=== PATIENT | female | born 1980 | race African-American/Black ===

== ENCOUNTER 2021-05-25 10:44 | Emergency (ER) | payer MEDICAID ==
[~2021-05-25] VITALS: Ht 167.6 cm; Wt 61.0 kg
[2021-05-25 11:17] LABS: BASOPHILS % 0.3 % (0.0-2.0); EOSINOPHILS % 0.2 % (0.0-5.0); HEMATOCRIT. 39.2 % (36.0-48.0); HEMOGLOBIN. 13.7 g/dL (12.0-16.0); LYMPHOCYTES % 11.1 % (20.0-50.0); MEAN CORPUSCULAR HEMOGLOBIN 35.5 pg (28.0-32.0); MEAN CORPUSCULAR VOLUME 101.6 fL (81.0-99.0); MONOCYTES % 7.7 % (2.0-8.0); NEUTROPHILS % 80.7 % (40.0-76.0); PLATELET 198 x1000/uL (130-400); RED BLOOD CELL COUNT 3.86 mill/uL (4.2-5.4); RED CELL DISTRIBUTION WIDTH 18.1 % (11.6-14.6)
[2021-05-25 11:24] LABS: CHLORIDE 104 mEq/L (98-107)
[2021-05-25 11:32] LABS: HCG SCREEN NEGATIVE
[2021-05-25 17:19] VITALS: BP 144/96
== END 2021-05-25 17:24 | disposition home or self-care (01) ==
LOC: ER 11:01
DX: R06.02 Shortness of breath (principal); R07.2 Precordial pain; M54.89 Other dorsalgia; R42 Dizziness and giddiness; I69.992 Facial weakness following unspecified cerebrovascular disease; Z86.711 Personal history of pulmonary embolism; Z91.14 Patient's other noncompliance with medication regimen
CPT/HCPCS: 36415; 71045; 71275; 80053; 83880; 84484; 84703; 85025; 85379; 93005; 99285

== ENCOUNTER 2021-06-27 09:50 | Emergency (ER) | payer MEDICAID ==
[~2021-06-27] VITALS: Ht 162.6 cm; Wt 46.0 kg
[2021-06-27] MEDS ORDERED: KETOROLAC 30MG/ML VIAL IV STA (10:28)
[2021-06-27] MEDS ORDERED: SODIUM CHLORIDE 0.9% 1,000 ML IV ONE (10:30)
[2021-06-27 10:56] LABS: BASOPHILS % 0.3 % (0.0-2.0); EOSINOPHILS % 0.1 % (0.0-5.0); HEMATOCRIT. 34.7 % (36.0-48.0); HEMOGLOBIN. 11.8 g/dL (12.0-16.0); LYMPHOCYTES % 10.8 % (20.0-50.0); MEAN CORPUSCULAR HEMOGLOBIN 36.6 pg (28.0-32.0); MEAN CORPUSCULAR VOLUME 107.4 fL (81.0-99.0); MEAN PLATELET VOLUME 7.9 fl (7.4-10.4); NEUTROPHILS % 80.8 % (40.0-76.0); PLATELET 279 x1000/uL (130-400); RED BLOOD CELL COUNT 3.23 mill/uL (4.2-5.4); RED CELL DISTRIBUTION WIDTH 16.8 % (11.6-14.6)
[2021-06-27 11:01] LABS: CHLORIDE 105 mEq/L (98-107)
[2021-06-27 12:08] LABS: HCG SCREEN NEGATIVE
[2021-06-27 13:05] LABS: CLARITY URINE CLEAR (CLEAR); COLOR URINE YELLOW (YELLOW); KETONES URINE 3+ (NEGATIVE); LEUKOCYTE ESTERASE URINE TRACE (NEGATIVE); NITRITE URINE POSITIVE (NEGATIVE); OCCULT BLOOD URINE NEGATIVE (NEGATIVE); PH URINE 6.5 (4.5-8.0); PROTEIN URINE NEGATIVE (NEGATIVE); SPECIFIC GRAVITY URINE 1.014 (1.005-1.030)
[2021-06-27] MEDS ORDERED: CEPH500C2 MT (13:35)
[2021-06-27] MEDS ORDERED: CEFTRIAXONE 1 G PREMIX 50 ML IV ONE (13:45)
[2021-06-27] MEDS ORDERED: IOHEXOL-350 100 ML BOTTLE ONE (14:50)
[2021-06-27 15:15] VITALS: BP 132/81
== END 2021-06-27 15:17 | disposition home or self-care (01) ==
LOC: ER 09:50
DX: N30.90 Cystitis, unspecified without hematuria (principal); R50.9 Fever, unspecified; R07.89 Other chest pain; Z86.73 Personal history of transient ischemic attack (TIA), and cerebral infarction without residual deficits
CPT/HCPCS: 36415; 71045; 71275; 80053; 81003; 83880; 84484; 84703; 85025; 85379; 87040; 93005; 96361; 96365; 96375; 99285; J0696; J1885; J7030; Q9967

== ENCOUNTER 2021-07-23 04:53 | Inpatient (IN) | payer MEDICAID, OTHER ==
[~2021-07-23] VITALS: Ht 167.6 cm; Wt 48.1 kg
[~2021-07-23 04:53] MED LIST: CEPH500C2 MT
[2021-07-23] MEDS ORDERED: ONDANSETRON HCL 4MG/2ML INJ IV STA (05:12)
[2021-07-23] MEDS ORDERED: SODIUM CHLORIDE 0.9% 1,000 ML IV ONE (05:15)
[2021-07-23 05:43] LABS: HEMATOCRIT. 41.8 % (36.0-48.0); HEMOGLOBIN. 13.6 g/dL (12.0-16.0); MEAN CORPUSCULAR HEMOGLOBIN 36.5 pg (28.0-32.0); MEAN CORPUSCULAR VOLUME 112.2 fL (81.0-99.0); MEAN PLATELET VOLUME 7.9 fl (7.4-10.4); PLATELET 331 x1000/uL (130-400); RED BLOOD CELL COUNT 3.72 mill/uL (4.2-5.4); RED CELL DISTRIBUTION WIDTH 19.1 % (11.6-14.6)
[2021-07-23 05:49] LABS: CHLORIDE 99 mEq/L (98-107)
[2021-07-23 07:06] LABS: PLATELET ESTIMATE NORMAL
[2021-07-23 07:19] LABS: HCG SCREEN NEGATIVE
[2021-07-23 08:03] LABS: CLARITY URINE CLOUDY (CLEAR); COLOR URINE DARK YELLOW (YELLOW); KETONES URINE 4+ (NEGATIVE); LEUKOCYTE ESTERASE URINE NEGATIVE (NEGATIVE); NITRITE URINE NEGATIVE (NEGATIVE); OCCULT BLOOD URINE 3+ (NEGATIVE); PH URINE 5.5 (4.5-8.0); PROTEIN URINE 2+ (NEGATIVE); SPECIFIC GRAVITY URINE 1.017 (1.005-1.030)
[2021-07-23] MEDS ORDERED: IOHEXOL-300 100 ML BOTTLE ONE (08:04)
[2021-07-23] MEDS ORDERED: PANTOPRAZOLE SODIUM 40 MG/VIAL IV SCH (09:30)
[2021-07-23] MEDS ORDERED: METOCLOPRAMIDE HCL 10MG/2ML VIAL IV ONE (09:30)
[2021-07-23] MEDS ORDERED: METRONIDAZOLE 500MG TABLET PO NR (10:00)
[2021-07-23] MEDS ORDERED: CEFTRIAXONE 1 G PREMIX 50 ML IV NR ×2 (10:00→11:15)
[2021-07-23] MEDS ORDERED: METOCLOPRAMIDE HCL 10MG/2ML VIAL IV NR (11:15)
[2021-07-23] MEDS ORDERED: MORPHINE SULFATE 2 MG/ML CPJ (NOT FOR IM USE) IV PRN (18:15)
[2021-07-23 18:23] VITALS: BP 129/92
[2021-07-23] MEDS ORDERED: NALOXONE HCL 0.4MG/ML VIAL IV PRN (18:30)
[2021-07-23] MEDS: ONDANSETRON HCL 4MG/2ML INJ IV PRN (18:38)
[2021-07-23 20:00] VITALS: BP 121/89
[2021-07-23] MEDS ORDERED: MAGN400C PO (20:08)
[2021-07-23] MEDS ORDERED: RIVA10TA MT (20:08)
[2021-07-23] MEDS ORDERED: MEDR2.5T7 MT (20:08)
[2021-07-23] MEDS ORDERED: LISI2.5T47 MT (20:08)
[2021-07-23] MEDS ORDERED: ASPI-986 MT (20:08)
[2021-07-23] MEDS: LEVOFLOXACIN 500MG PREMIX 100 ML IV SCH (20:35)
[2021-07-23] MEDS: DEXT 5%/0.9% NACL KCL 20MEQ/L 1,000 ML IV SCH (20:35)
[2021-07-24] VITALS: BP 121/86
[2021-07-24] MEDS: ONDANSETRON HCL 4MG/2ML INJ IV PRN ×2 (00:48→06:46)
[2021-07-24 04:00] VITALS: BP 115/79
[2021-07-24] MEDS: DEXT 5%/0.9% NACL KCL 20MEQ/L 1,000 ML IV SCH ×2 (06:11→13:14)
[2021-07-24 07:17] LABS: BASOPHILS % 0.1 % (0.0-2.0); EOSINOPHILS % 0.1 % (0.0-5.0); HEMATOCRIT. 32.8 % (36.0-48.0); LYMPHOCYTES % 8.3 % (20.0-50.0); MEAN CORPUSCULAR HEMOGLOBIN 36.1 pg (28.0-32.0); MEAN CORPUSCULAR VOLUME 107.9 fL (81.0-99.0); MEAN PLATELET VOLUME 7.7 fl (7.4-10.4); MONOCYTES % 11.6 % (2.0-8.0); NEUTROPHILS % 79.9 % (40.0-76.0); PLATELET 195 x1000/uL (130-400); RED BLOOD CELL COUNT 3.04 mill/uL (4.2-5.4); RED CELL DISTRIBUTION WIDTH 18.2 % (11.6-14.6)
[2021-07-24 08:00] VITALS: BP 113/79
[2021-07-24 08:22] LABS: CHLORIDE 111 mEq/L (98-107)
[2021-07-24 12:00] VITALS: BP 120/81
[2021-07-24] MEDS: METRONIDAZOLE 500MG TABLET PO SCH ×2 (13:13→21:27)
[2021-07-24] MEDS: METOCLOPRAMIDE HCL 10MG/2ML VIAL IV SCH ×2 (13:14→18:10)
[2021-07-24 13:17] LABS: INR 1.2; PROTHROMBIN TIME 12.6 sec (9.6-11.0)
[2021-07-24 15:51] LABS: HEPATITIS B SURFACE ANTIGEN REACTIVE PEND CONFIR
[2021-07-24 16:00] VITALS: BP 139/92
[2021-07-24] MEDS: PANTOPRAZOLE SODIUM 40 MG/VIAL IV SCH (18:10)
[2021-07-24] MEDS: TRAMADOL 50MG TABLET PO PRN (18:10)
[2021-07-24 20:00] VITALS: BP 126/90
[2021-07-24] MEDS: LEVOFLOXACIN 500MG PREMIX 100 ML IV SCH (21:27)
[2021-07-25] VITALS: BP 124/88
[2021-07-25] MEDS: METOCLOPRAMIDE HCL 10MG/2ML VIAL IV SCH ×4 (00:45→18:22)
[2021-07-25] MEDS: TRAMADOL 50MG TABLET PO PRN ×2 (00:45→09:57)
[2021-07-25 04:00] VITALS: BP 128/82
[2021-07-25] MEDS: DEXT 5%/0.9% NACL KCL 20MEQ/L 1,000 ML IV SCH ×3 (05:58→20:00)
[2021-07-25 06:36] LABS: CHLORIDE 112 mEq/L (98-107)
[2021-07-25 06:44] LABS: BASOPHILS % 0.3 % (0.0-2.0); EOSINOPHILS % 0.3 % (0.0-5.0); HEMATOCRIT. 27.4 % (36.0-48.0); HEMOGLOBIN. 9.5 g/dL (12.0-16.0); LYMPHOCYTES % 16.8 % (20.0-50.0); MEAN CORPUSCULAR HEMOGLOBIN 36.9 pg (28.0-32.0); MEAN CORPUSCULAR VOLUME 106.6 fL (81.0-99.0); MEAN PLATELET VOLUME 7.7 fl (7.4-10.4); MONOCYTES % 11.6 % (2.0-8.0); PLATELET 125 x1000/uL (130-400); RED BLOOD CELL COUNT 2.57 mill/uL (4.2-5.4)
[2021-07-25 08:00] VITALS: BP 147/101
[2021-07-25] MEDS: METRONIDAZOLE 500MG TABLET PO SCH ×2 (09:56→21:39)
[2021-07-25] MEDS: PANTOPRAZOLE SODIUM 40 MG/VIAL IV SCH ×2 (09:57→18:22)
[2021-07-25] MEDS ORDERED: POTASSIUM CHLORIDE 20MEQ/PACKET PO NR ×3 (10:00→17:00)
[2021-07-25] MEDS ORDERED: OMEP40CA20 MT (11:00)
[2021-07-25 12:00] VITALS: BP 145/100
[2021-07-25] MEDS: KCL 20MEQ/100ML X 2 FOR TOTAL KCL 40MEQ/200ML IV SCH ×2 (12:31→14:00)
[2021-07-25] MEDS ORDERED: DIATR MEGLU/DIATRIZOATE SOLN 30ML PO SCH (14:00)
[2021-07-25] MEDS ORDERED: LORAZEPAM 2MG/ML CPJ IV PRN (14:00)
[2021-07-25 16:00] VITALS: BP 131/99
[2021-07-25] MEDS ORDERED: POTASSIUM CHLORIDE INJ 40 MEQ in DEXT 5% WATER 250 ML IV ONE (17:00)
[2021-07-25] MEDS ORDERED: GADOTERATE MEGLUMINE 5 MMOL/10 ML VIAL IV ONE (17:02)
[2021-07-25 20:00] VITALS: BP 139/98
[2021-07-25] MEDS: LEVOFLOXACIN 500MG PREMIX 100 ML IV SCH (21:39)
[2021-07-26] VITALS: BP 145/102
[2021-07-26] MEDS: METOCLOPRAMIDE HCL 10MG/2ML VIAL IV SCH ×3 (00:56→12:27)
[2021-07-26] MEDS: DEXT 5%/0.9% NACL KCL 20MEQ/L 1,000 ML IV SCH ×2 (04:30→12:28)
[2021-07-26 06:54] LABS: BASOPHILS % 0.2 % (0.0-2.0); EOSINOPHILS % 0.3 % (0.0-5.0); HEMATOCRIT. 29.5 % (36.0-48.0); HEMOGLOBIN. 10.2 g/dL (12.0-16.0); LYMPHOCYTES % 15.7 % (20.0-50.0); MEAN CORPUSCULAR HEMOGLOBIN 36.9 pg (28.0-32.0); MEAN PLATELET VOLUME 8.1 fl (7.4-10.4); MONOCYTES % 10.5 % (2.0-8.0); NEUTROPHILS % 73.3 % (40.0-76.0); PLATELET 137 x1000/uL (130-400); RED BLOOD CELL COUNT 2.76 mill/uL (4.2-5.4); RED CELL DISTRIBUTION WIDTH 17.5 % (11.6-14.6)
[2021-07-26 07:03] LABS: CHLORIDE 109 mEq/L (98-107)
[2021-07-26 08:00] VITALS: BP 121/82
[2021-07-26] MEDS: METRONIDAZOLE 500MG TABLET PO SCH (08:14)
[2021-07-26] MEDS: PANTOPRAZOLE SODIUM 40 MG/VIAL IV SCH (08:14)
[2021-07-26 12:00] VITALS: BP 134/96
[2021-07-26] MEDS ORDERED: POTASSIUM CHLORIDE 20MEQ TABLET SR PO NR (12:30)
[2021-07-28 09:10] LABS: HBSAG SCREEN Confirm. indicated (Negative)
[2021-07-28 13:06] LABS: HBSAG CONFIRMATION Positive (.)
== END 2021-07-26 15:57 | disposition home or self-care (01) | DRG 720 ==
LOC: ER 04:53 → 6EST 09:51 → EDBEDREQTM 09:53 → EDBEDREQ 09:53 → ENRESERV 14:55
PROVIDERS: ADMIT Internal Medicine; ATTEND Internal Medicine
DX: A41.9 Sepsis, unspecified organism (principal); K85.20 Alcohol induced acute pancreatitis without necrosis or infection; I69.354 Hemiplegia and hemiparesis following cerebral infarction affecting left non-dominant side; K70.10 Alcoholic hepatitis without ascites; R16.0 Hepatomegaly, not elsewhere classified; A59.9 Trichomoniasis, unspecified; D53.9 Nutritional anemia, unspecified; B19.10 Unspecified viral hepatitis B without hepatic coma; D50.9 Iron deficiency anemia, unspecified; F10.20 Alcohol dependence, uncomplicated; K20.90 Esophagitis, unspecified without bleeding; K29.70 Gastritis, unspecified, without bleeding; K52.9 Noninfective gastroenteritis and colitis, unspecified; K76.9 Liver disease, unspecified; K31.89 Other diseases of stomach and duodenum; R74.01 Elevation of levels of liver transaminase levels; F17.210 Nicotine dependence, cigarettes, uncomplicated; Z79.82 Long term (current) use of aspirin; Z86.711 Personal history of pulmonary embolism; Z79.01 Long term (current) use of anticoagulants; Z79.899 Other long term (current) drug therapy; Z71.6 Tobacco abuse counseling
CPT/HCPCS: 36415; 74177; 74183; 76700; 80048; 80053; 80076; 81003; 82140; 83036; 84703; 85025; 86705; 86709; 86803; 87340; 87517; 99285; A9577; C9113; J0696; J1956; J2060; J2270; J2405; J2765; J3480; J7030; Q9963; Q9967

== ENCOUNTER 2021-08-14 00:30 | Inpatient (IN) | payer MEDICAID, OTHER ==
[~2021-08-14] VITALS: Ht 167.6 cm; Wt 50.0 kg
[~2021-08-14 00:30] MED LIST changes: +ASPI-986 MT; -CEPH500C2 MT; +LISI2.5T47 MT; +MAGN400C PO; +MEDR2.5T7 MT; +OMEP40CA20 MT; +RIVA10TA MT
[2021-08-14] MEDS ORDERED: IBUPROFEN 600MG TABLET PO STA (00:46)
[2021-08-14] MEDS ORDERED: ONDANSETRON 4MG ODT PO ONE (02:00)
[2021-08-14 02:11] LABS: CLARITY URINE CLEAR (CLEAR); COLOR URINE YELLOW (YELLOW); KETONES URINE 4+ (NEGATIVE); LEUKOCYTE ESTERASE URINE NEGATIVE (NEGATIVE); NITRITE URINE NEGATIVE (NEGATIVE); OCCULT BLOOD URINE 2+ (NEGATIVE); PROTEIN URINE 2+ (NEGATIVE); SPECIFIC GRAVITY URINE 1.012 (1.005-1.030); UROBILINOGEN URINE 0.2 E.U./dL (0.2-1.0)
[2021-08-14 02:44] LABS: HCG SCREEN NEGATIVE
[2021-08-14 02:54] LABS: HEMATOCRIT. 43.5 % (36.0-48.0); HEMOGLOBIN. 12.9 g/dL (12.0-16.0); MEAN CORPUSCULAR HEMOGLOBIN 34.7 pg (28.0-32.0); MEAN CORPUSCULAR VOLUME 117.2 fL (81.0-99.0); MEAN PLATELET VOLUME 7.4 fl (7.4-10.4); PLATELET 306 x1000/uL (130-400); RED BLOOD CELL COUNT 3.72 mill/uL (4.2-5.4); RED CELL DISTRIBUTION WIDTH 20.8 % (11.6-14.6)
[2021-08-14 03:02] LABS: CHLORIDE 104 mEq/L (98-107)
[2021-08-14 04:27] LABS: PLATELET ESTIMATE NORMAL
[2021-08-14 04:32] LABS: BG BASE EXCESS -20.8 mmol/L (-2.0-2.0); BG CARBOXYHEMOGLOBIN 0.4 % (0.5-1.5); BG DEOXYHEMOGLOBIN 2.1 % (0.0-5.0); BG HCO3 ACT 5.9 mmol/L (22.0-26.0); BG METHEMOGLOBIN 0.4 % (0.0-1.5); BG OXYGEN SATURATION 97.9 % (92.0-98.5); BG OXYHEMOGLOBIN 97.1 % (94.0-97.0); BG PCO2 17.1 mmHg (35.0-45.0); BG PH 7.154 (7.350-7.450); BG SAMPLE SITE LEFT BRACHIAL; BG TOTAL HEMOGLOBIN 12.8 g/dL (12.0-18.0); BG VENT MODE ROOM AIR
[2021-08-14] MEDS ORDERED: SODIUM CHLORIDE 0.9% 1,000 ML IV ONE (05:00)
[2021-08-14] MEDS ORDERED: PIPERACILLIN/TAZOBACTAM 3.375GM/50ML PREMIX IV ONE (05:00)
[2021-08-14] MEDS ORDERED: PIPERACILLIN/TAZ 3.375G PREMIX 50 ML IV NR (05:15)
[2021-08-14] MEDS ORDERED: NALOXONE HCL 0.4MG/ML VIAL IV PRN (07:15)
[2021-08-14] MEDS ORDERED: MEDR2.5T7 PO (11:07)
[2021-08-14 11:15] VITALS: BP 122/64
[2021-08-14] MEDS ORDERED: CLONIDINE 0.1MG TABLET PO PRN (11:15)
[2021-08-14] MEDS ORDERED: DOCUSATE SODIUM 100MG CAPSULE PO PRN (11:15)
[2021-08-14] MEDS ORDERED: ONDANSETRON HCL 4MG/2ML INJ IV PRN (11:15)
[2021-08-14] MEDS ORDERED: MAGNESIUM/ALUMINUM HYDROXIDE/SIMETHICONE 30ML UDC PO PRN (11:15)
[2021-08-14] MEDS ORDERED: SODIUM BICARBONATE 8.4% 1 MEQ/ML 50ML SYR IV ONE (11:15)
[2021-08-14] MEDS ORDERED: ACETAMINOPHEN 325MG TABLET PO PRN (11:15)
[2021-08-14] MEDS ORDERED: PANTOPRAZOLE SODIUM 40 MG/VIAL IV SCH (11:30)
[2021-08-14 11:31] VITALS: BP 138/94
[2021-08-14 11:54] LABS: BG BASE EXCESS -11.1 mmol/L (-2.0-2.0); BG CARBOXYHEMOGLOBIN 0.4 % (0.5-1.5); BG DEOXYHEMOGLOBIN 2.8 % (0.0-5.0); BG FRACTION INSPIRED OXYGEN 21; BG HCO3 ACT 12.5 mmol/L (22.0-26.0); BG METHEMOGLOBIN 0.1 % (0.0-1.5); BG OXYGEN SATURATION 97.2 % (92.0-98.5); BG OXYHEMOGLOBIN 96.7 % (94.0-97.0); BG PCO2 22.7 mmHg (35.0-45.0); BG PO2 94.4 mmHg (75.0-100.0); BG SAMPLE SITE RIGHT RADIAL; BG TOTAL HEMOGLOBIN 11.5 g/dL (12.0-18.0); BG VENT MODE ROOM AIR
[2021-08-14 12:00] VITALS: BP 136/87
[2021-08-14] MEDS ORDERED: VANCOMYCIN 1250MG in DEXTROSE 5% WATER 250ML IV NR (13:00)
[2021-08-14] MEDS: ASPIRIN 325MG TABLET PO SCH (13:33)
[2021-08-14] MEDS: LISINOPRIL 2.5MG TABLET PO SCH (13:33)
[2021-08-14] MEDS: DEXT 5%/0.45% NACL 1000ML 1,000 ML IV SCH (13:34)
[2021-08-14] MEDS: HYDROCODONE/ACETAMINOPHEN 10/325MG TABLET PO PRN (13:34)
[2021-08-14 14:23] LABS: CLARITY URINE CLOUDY (CLEAR); COLOR URINE YELLOW (YELLOW); KETONES URINE 4+ (NEGATIVE); LEUKOCYTE ESTERASE URINE TRACE (NEGATIVE); NITRITE URINE NEGATIVE (NEGATIVE); OCCULT BLOOD URINE NEGATIVE (NEGATIVE); PROTEIN URINE 2+ (NEGATIVE); SPECIFIC GRAVITY URINE 1.018 (1.005-1.030)
[2021-08-14 14:41] LABS: *AMPHETAMINES SCREEN URINE NEGATIVE (NEGATIVE); *BARBITURATES SCREEN URINE NEGATIVE (NEGATIVE); *BENZODIAZEPINES SCREEN URINE NEGATIVE (NEGATIVE); *COCAINE SCREEN URINE NEGATIVE (NEGATIVE); METHADONE URINE SCREEN NEGATIVE (NEGATIVE); OPIATES URINE SCREEN NEGATIVE (NEGATIVE); PHENCYCLIDINE URINE SCREEN NEGATIVE (NEGATIVE)
[2021-08-14 14:50] LABS: CANNABINOID URINE SCREEN PRESUMTIVE POSITIVE (NEGATIVE)
[2021-08-14] MEDS ORDERED: VANCOMYCIN 1G PREMIX 200 ML IV NR (15:30)
[2021-08-14 16:00] VITALS: BP 102/68
[2021-08-14] MEDS: RIVAROXABAN 10 MG TABLET PO SCH (16:50)
[2021-08-14 17:49] LABS: BASOPHILS % 0.2 % (0.0-2.0); HEMATOCRIT. 32.4 % (36.0-48.0); HEMOGLOBIN. 10.3 g/dL (12.0-16.0); LYMPHOCYTES % 11.1 % (20.0-50.0); MEAN CORPUSCULAR HEMOGLOBIN 34.7 pg (28.0-32.0); MEAN CORPUSCULAR VOLUME 109.4 fL (81.0-99.0); MEAN PLATELET VOLUME 7.3 fl (7.4-10.4); MONOCYTES % 9.9 % (2.0-8.0); NEUTROPHILS % 78.8 % (40.0-76.0); PLATELET 199 x1000/uL (130-400); RED BLOOD CELL COUNT 2.97 mill/uL (4.2-5.4)
[2021-08-14 17:57] LABS: CHLORIDE 105 mEq/L (98-107)
[2021-08-14 20:00] VITALS: BP 93/54
[2021-08-14] MEDS ORDERED: VANCOMYCIN 750MG PREMIX 150 ML IV SCH (21:00)
[2021-08-14] MEDS: DIPHENHYDRAMINE 50MG/ML VIAL IV PRN (21:33)
[2021-08-14] MEDS ORDERED: VANCOMYCIN 500 MG in DEXT 5% WATER 100 ML IV SCH (22:00)
[2021-08-14] MEDS: LACTULOSE 20G/30ML UDC PO SCH (23:36)
[2021-08-15] VITALS: BP 93/62
[2021-08-15] MEDS: DEXT 5%/0.45% NACL 1000ML 1,000 ML IV SCH ×3 (03:38→18:12)
[2021-08-15 04:00] VITALS: BP 98/68
[2021-08-15] MEDS: LACTULOSE 20G/30ML UDC PO SCH ×3 (06:18→22:00)
[2021-08-15 07:24] LABS: BASOPHILS % 0.2 % (0.0-2.0); CHLORIDE 106 mEq/L (98-107); EOSINOPHILS % 0.3 % (0.0-5.0); HEMATOCRIT. 29.1 % (36.0-48.0); HEMOGLOBIN. 9.8 g/dL (12.0-16.0); LYMPHOCYTES % 21.8 % (20.0-50.0); MEAN CORPUSCULAR HEMOGLOBIN 35.5 pg (28.0-32.0); MEAN CORPUSCULAR VOLUME 105.4 fL (81.0-99.0); MEAN PLATELET VOLUME 7.6 fl (7.4-10.4); MONOCYTES % 7.4 % (2.0-8.0); NEUTROPHILS % 70.3 % (40.0-76.0); PLATELET 148 x1000/uL (130-400); RED BLOOD CELL COUNT 2.76 mill/uL (4.2-5.4); RED CELL DISTRIBUTION WIDTH 18.8 % (11.6-14.6)
[2021-08-15 07:48] LABS: HDL CHOLESTEROL 28 mg/dL (40-59); LDL CHOLESTEROL 123 mg/dL (5-100); T4 FREE 1.17 ng/dL (0.76-1.46)
[2021-08-15 07:56] LABS: PHOSPHORUS 0.7 mg/dL (2.5-4.9)
[2021-08-15 08:00] VITALS: BP 120/82
[2021-08-15] MEDS: FAMOTIDINE 20MG/2ML VIAL IV SCH ×2 (08:59→20:49)
[2021-08-15] MEDS: RIVAROXABAN 10 MG TABLET PO SCH (08:59)
[2021-08-15] MEDS: LISINOPRIL 2.5MG TABLET PO SCH (08:59)
[2021-08-15] MEDS: HYDROCODONE/ACETAMINOPHEN 5/325MG TABLET PO PRN (09:00)
[2021-08-15] MEDS: ASPIRIN 325MG TABLET PO SCH (09:02)
[2021-08-15] MEDS ORDERED: POTASSIUM PHOS M BASIC D BASIC IV ONE (10:45)
[2021-08-15] MEDS ORDERED: WATER IV ONE (10:45)
[2021-08-15] MEDS ORDERED: DEXT 5% IV ONE (10:45)
[2021-08-15] MEDS ORDERED: POTASSIUM CHLORIDE INJ 60 MEQ in DEXT 5% WATER 250 ML IV ONE (10:45)
[2021-08-15] MEDS ORDERED: POTASSIUM CHLORIDE 20MEQ TABLET SR PO SCH (11:30)
[2021-08-15 12:00] VITALS: BP 103/75
[2021-08-15] MEDS ORDERED: KCL 20MEQ/100ML PREMIX 100 ML IV SCH (12:00)
[2021-08-15] MEDS ORDERED: POTASSIUM PHOS,M-BASIC-D-BASIC 20 MMOL in DEXT 5% WATER 250 ML IV SCH (13:00)
[2021-08-15 16:00] VITALS: BP 100/72
[2021-08-15] MEDS ORDERED: MAGNESIUM 1 G PREMIX 100 ML IV NR (18:00)
[2021-08-15] MEDS: SUCRALFATE 1 G/10 ML UDC PO SCH ×2 (18:12→20:49)
[2021-08-15 20:00] VITALS: BP 125/80
[2021-08-15] MEDS: HYDROCODONE/ACETAMINOPHEN 10/325MG TABLET PO PRN (20:50)
[2021-08-16] VITALS: BP 107/77
[2021-08-16] MEDS: DIPHENHYDRAMINE 50MG/ML VIAL IV PRN (00:02)
[2021-08-16] MEDS: DEXT 5%/0.45% NACL 1000ML 1,000 ML IV SCH ×2 (03:30→13:30)
[2021-08-16 04:00] VITALS: BP 123/85
[2021-08-16] MEDS: LACTULOSE 20G/30ML UDC PO SCH ×3 (06:00→22:00)
[2021-08-16 06:56] LABS: BASOPHILS % 0.3 % (0.0-2.0); EOSINOPHILS % 0.5 % (0.0-5.0); HEMATOCRIT. 28.3 % (36.0-48.0); HEMOGLOBIN. 9.4 g/dL (12.0-16.0); LYMPHOCYTES % 22.5 % (20.0-50.0); MEAN CORPUSCULAR HEMOGLOBIN 35.2 pg (28.0-32.0); MEAN CORPUSCULAR VOLUME 105.6 fL (81.0-99.0); MEAN PLATELET VOLUME 7.7 fl (7.4-10.4); NEUTROPHILS % 69.7 % (40.0-76.0); PLATELET 111 x1000/uL (130-400); RED BLOOD CELL COUNT 2.68 mill/uL (4.2-5.4); RED CELL DISTRIBUTION WIDTH 18.2 % (11.6-14.6)
[2021-08-16 07:17] LABS: CHLORIDE 108 mEq/L (98-107)
[2021-08-16 07:22] LABS: PHOSPHORUS 1.3 mg/dL (2.5-4.9)
[2021-08-16 08:00] VITALS: BP 114/87
[2021-08-16] MEDS: RIVAROXABAN 10 MG TABLET PO SCH (09:38)
[2021-08-16] MEDS: ASPIRIN 325MG TABLET PO SCH (09:38)
[2021-08-16] MEDS: LISINOPRIL 2.5MG TABLET PO SCH (09:38)
[2021-08-16] MEDS: SUCRALFATE 1 G/10 ML UDC PO SCH ×4 (09:38→21:17)
[2021-08-16] MEDS: FAMOTIDINE 20MG/2ML VIAL IV SCH (09:39)
[2021-08-16] MEDS ORDERED: POTASSIUM CHLORIDE 20MEQ TABLET SR PO NR (11:00)
[2021-08-16] MEDS: HYDROCODONE/ACETAMINOPHEN 10/325MG TABLET PO PRN ×2 (11:04→21:19)
[2021-08-16 12:00] VITALS: BP 128/93
[2021-08-16] MEDS ORDERED: MAGNESIUM 2 G PREMIX 50 ML IV NR (15:30)
[2021-08-16] MEDS ORDERED: POTASSIUM PHOS,M-BASIC-D-BASIC 30 MMOL in DEXT 5% WATER 500 ML IV NR (15:30)
[2021-08-16 16:00] VITALS: BP 106/82
[2021-08-16 20:00] VITALS: BP 119/90
[2021-08-16] MEDS: FAMOTIDINE 20MG TABLET PO SCH (21:18)
[2021-08-17 00:02] VITALS: BP 127/76
[2021-08-17] MEDS: DEXT 5%/0.45% NACL 1000ML 1,000 ML IV SCH ×2 (02:43→08:35)
[2021-08-17 04:00] VITALS: BP 117/80
[2021-08-17] MEDS: LACTULOSE 20G/30ML UDC PO SCH ×2 (06:00→14:00)
[2021-08-17 07:37] LABS: CHLORIDE 108 mEq/L (98-107)
[2021-08-17 07:49] LABS: PHOSPHORUS 1.3 mg/dL (2.5-4.9)
[2021-08-17 08:00] VITALS: BP 119/86
[2021-08-17] MEDS: ASPIRIN 325MG TABLET PO SCH (08:34)
[2021-08-17] MEDS: SUCRALFATE 1 G/10 ML UDC PO SCH ×2 (08:34→12:15)
[2021-08-17] MEDS: FAMOTIDINE 20MG TABLET PO SCH (08:34)
[2021-08-17] MEDS: RIVAROXABAN 10 MG TABLET PO SCH (08:34)
[2021-08-17] MEDS: LISINOPRIL 2.5MG TABLET PO SCH (08:34)
[2021-08-17 12:00] VITALS: BP 129/78
[2021-08-17] MEDS ORDERED: SODIUM PHOS,M-BASIC-D-BASIC 30 MM in DEXT 5% WATER 500 ML IV NR (12:00)
[2021-08-17] MEDS: HYDROCODONE/ACETAMINOPHEN 5/325MG TABLET PO PRN (12:16)
[2021-08-17] MEDS ORDERED: POTASSIUM-SODIUM PHOSPHATE POWDER PACKET PO NR (13:30)
[2021-08-17 14:09] VITALS: BP 129/78
== END 2021-08-17 15:00 | disposition home or self-care (01) | DRG 241 ==
LOC: ER 00:30 → 7WST 06:45 → ENRESERV 09:29
PROVIDERS: ADMIT Internal Medicine; ATTEND Internal Medicine
DX: K29.70 Gastritis, unspecified, without bleeding (principal); E87.2 Acidosis; E72.20 Disorder of urea cycle metabolism, unspecified; E83.39 Other disorders of phosphorus metabolism; I69.354 Hemiplegia and hemiparesis following cerebral infarction affecting left non-dominant side; I10 Essential (primary) hypertension; E83.42 Hypomagnesemia; E87.6 Hypokalemia; R74.01 Elevation of levels of liver transaminase levels; F10.20 Alcohol dependence, uncomplicated; Z20.822 Contact with and (suspected) exposure to COVID-19; Z68.30 Body mass index [BMI] 30.0-30.9, adult; Z91.81 History of falling; Z71.41 Alcohol abuse counseling and surveillance of alcoholic; Z79.01 Long term (current) use of anticoagulants; Z79.82 Long term (current) use of aspirin; Z79.899 Other long term (current) drug therapy; Z87.891 Personal history of nicotine dependence; Z86.711 Personal history of pulmonary embolism
CPT/HCPCS: 36415; 36600; 71045; 74176; 76700; 80048; 80053; 80061; 80076; 80305; 80320; 80329; 81003; 82140; 82375; 82805; 83605; 83735; 84100; 84145; 84439; 84443; 84484; 84703; 85025; 87426; 93005; 93970; 97162; 99291; C9113; C9803; J1200; J2405; J2543; J3370; J3475; J3480; J3490; J7030; J7060; Q0162; G0480